=== PATIENT | male | born 1995 | race Caucasian/White ===

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

== ENCOUNTER 2017-08-06 12:16 | Emergency (ER) | payer OTHER | END 2017-08-06 14:46 | disposition home or self-care (01) | LOC: M ED 12:16 | DX: S93.401A Sprain of unspecified ligament of right ankle, initial encounter (principal); X50.9XXA Other and unspecified overexertion or strenuous movements or postures, initial encounter; Y92.410 Unspecified street and highway as the place of occurrence of the external cause | CPT/HCPCS: 73610 ==

== ENCOUNTER → 2018-03-22 | Outpatient (REF) | payer OTHER ==
[~2018-03-22] MED LIST changes: +TRAZ-160 PO; -TRAZ50TA11 PO; +ZOFR4TAB14 PO; -ZOFR4TAB3 PO
[2018-03-25 13:32] LABS: INFLUENZA A AMPLIFICATION NEGATIVE (NEGATIVE); INFLUENZA B AMPLIFICATION NEGATIVE (NEGATIVE)
== END ==
LOC: M LAB REF 09:47
PROVIDERS: ATTEND Physician Assistant Medical
DX: J11.1 Influenza due to unidentified influenza virus with other respiratory manifestations (principal)

== ENCOUNTER → 2018-03-22 | Outpatient (REF) | payer OTHER | LOC: M LAB REF 11:56 | PROVIDERS: ATTEND Physician Assistant Medical | DX: J11.1 Influenza due to unidentified influenza virus with other respiratory manifestations (principal) ==

== ENCOUNTER → 2018-09-30 | Outpatient (REF) | payer OTHER ==
[~2018-09-30] MED LIST changes: -TRAZ-160 PO; +TRAZ-252 PO
[2018-09-30 19:06] LABS: BASO % 0.7 % (0.0-1.0); EOS # 0.1 10^3/uL (0.0-0.50); EOS % 1.1 % (0.0-3.0); HEMATOCRIT 43.1 % (42.0-52.0); HEMOGLOBIN 15.1 g/dl (13.5-17.5); LYMPH % 34.8 % (24.0-44.0); MEAN CORPUSCULAR HEMOGLOBIN 32.5 pg (27.0-33.0); MEAN CORPUSCULAR VOLUME 92.7 fl (80.0-96.0); MONO # 0.6 10^3/uL (0.0-0.8); MONO % 11.2 % (0.0-5.0); NEUTROPHILS # 2.9 10^3/uL (1.8-7.7); PLATELET COUNT, AUTOMATED 193 10^3/uL (150-450); RED BLOOD COUNT 4.65 10^6/uL (4.30-6.10); WHITE BLOOD COUNT 5.6 10^3/uL (4.0-10.0)
[2018-09-30 19:19] LABS: ALBUMIN 4.5 GM/DL (3.2-5.2); ALT/SGPT 22 U/L (12-78); BILIRUBIN,TOTAL 2.8 MG/DL (0.2-1.0); BLOOD UREA NITROGEN 9 MG/DL (7-18); CALCIUM LEVEL 9.4 MG/DL (8.5-10.1); CARBON DIOXIDE LEVEL 31 MEQ/L (21-32); CHLORIDE LEVEL 106 MEQ/L (98-107); CHOLESTEROL LEVEL 148 MG/DL (<200); CHOLESTEROL RISK RATIO 2.349 (<5); CREATININE FOR GFR 0.99 MG/DL (0.70-1.30); FREE T4 1.08 NG/DL (0.76-1.46); GLOMERULAR FILTRATION RATE > 60.0 (>60); GLUCOSE, FASTING 94 MG/DL (70-100); HDL CHOLESTEROL 63 MG/DL (>40); LDL CHOLESTEROL 72 MG/DL (<100); NON-HDL-C 85 MG/DL; POTASSIUM SERUM 3.7 MEQ/L (3.5-5.1); SODIUM LEVEL 141 MEQ/L (136-145); TOTAL PROTEIN 7.9 GM/DL (6.4-8.2); TRIGLYCERIDES LEVEL 65 MG/DL (<150)
[2018-09-30 19:21] LABS: TOTAL 25(OH) VITAMIN D 27.1 NG/ML (30.0-100.0)
[2018-09-30 20:15] LABS: HEMOGLOBIN A1c 5.2 %
== END ==
LOC: M LAB REF 17:54
PROVIDERS: ATTEND Nurse Practitioner Family
DX: Z00.00 Encounter for general adult medical examination without abnormal findings (principal)

== ENCOUNTER → 2019-04-19 | Outpatient (REF) | payer OTHER | LOC: M LAB REF 14:28 → EEVIPCON 14:28 | PROVIDERS: ATTEND Physician Assistant Medical | DX: L98.9 Disorder of the skin and subcutaneous tissue, unspecified (principal) ==

== ENCOUNTER 2019-05-21 19:42 | Emergency (ER) | payer OTHER ==
[~2019-05-21] VITALS: Ht 177.8 cm; Wt 56.6 kg
[2019-05-21] MEDS ORDERED: PROZ20CA11 PO (19:45)
[2019-05-21] MEDS ORDERED: NS 1,000 ML IV ONE (20:00)
[2019-05-21] MEDS ORDERED: ONDANSETRON 4MG/2ML VIAL (J2405) IV ONE (20:00)
[2019-05-21 20:33] LABS: BASO % 0.3 % (0.0-1.0); EOS % 0.3 % (0.0-3.0); LYMPH # 0.5 10^3/uL (1.5-5.0); LYMPH % 4.8 % (24.0-44.0); MEAN CORPUSCULAR HGB CONC 34.9 g/dl (32.0-36.5); MEAN CORPUSCULAR VOLUME 91.7 fl (80.0-96.0); MONO # 0.7 10^3/uL (0.0-0.8); NEUTROPHILS # 9.9 10^3/uL (1.5-8.5); NEUTROPHILS % 88.1 % (36.0-66.0); PLATELET COUNT, AUTOMATED 177 10^3/uL (150-450); RED BLOOD COUNT 4.69 10^6/uL (4.30-6.10); WHITE BLOOD COUNT 11.3 10^3/uL (4.0-10.0)
[2019-05-21 20:37] LABS: APPEARANCE, URINE CLEAR (CLEAR); BACTERIA, URINE AUTO NEGATIVE (NEGATIVE); BILIRUBIN, URINE AUTO NEGATIVE (NEGATIVE); BLOOD, URINE BLOOD NEGATIVE (NEGATIVE); COLOR, URINE YELLOW (YELLOW); GLUCOSE, URINE (UA) AUTO NEGATIVE (NEGATIVE); KETONE, URINE AUTO 1+ mg/dL (NEGATIVE); LEUKOCYTE ESTERASE, URINE AUTO NEGATIVE (NEGATIVE); MUCUS, URINE SMALL (NEGATIVE); NITRITE, URINE AUTO NEGATIVE (NEGATIVE); PROTEIN, URINE AUTO NEGATIVE (NEGATIVE); RBC, URINE AUTO 0 /HPF (0-3); SPECIFIC GRAVITY URINE AUTO 1.025 (1.002-1.035); SQUAMOUS EPITHELIAL CELL UR AU 0 /HPF (0-6); UROBILINOGEN, URINE AUTO 0.2 mg/dL (0.0-2.0); WBC, URINE AUTO 1 /HPF (0-3)
[2019-05-21 20:59] LABS: ALBUMIN 3.9 GM/DL (3.2-5.2); ALT/SGPT 28 U/L (12-78); BILIRUBIN,DIRECT 0.3 MG/DL (0.0-0.2); BILIRUBIN,TOTAL 1.4 MG/DL (0.2-1.0); BLOOD UREA NITROGEN 10 MG/DL (7-18); CALCIUM LEVEL 8.9 MG/DL (8.5-10.1); CARBON DIOXIDE LEVEL 26 MEQ/L (21-32); CHLORIDE LEVEL 102 MEQ/L (98-107); CREATININE FOR GFR 0.89 MG/DL (0.70-1.30); GLOMERULAR FILTRATION RATE > 60.0 (>60); GLUCOSE, FASTING 147 MG/DL (70-100); POTASSIUM SERUM 3.6 MEQ/L (3.5-5.1); SODIUM LEVEL 135 MEQ/L (136-145); TOTAL PROTEIN 7.7 GM/DL (6.4-8.2)
[2019-05-21] MEDS ORDERED: ONDA4TAB6 PO (21:08)
[2019-05-21 21:17] VITALS: BP 118/70
== END 2019-05-21 21:19 | disposition home or self-care (01) ==
LOC: M ED 19:42
DX: R11.2 Nausea with vomiting, unspecified (principal); E86.0 Dehydration; F17.290 Nicotine dependence, other tobacco product, uncomplicated; Z88.8 Allergy status to other drugs, medicaments and biological substances; Z91.018 Allergy to other foods
CPT/HCPCS: 80048; 80076; 81001; 85025; 96361; 96374; 99284; J2405

== ENCOUNTER 2020-07-11 19:43 | Inpatient (IN) | payer MEDICAID, OTHER ==
[~2020-07-11] VITALS: Ht 180.3 cm; Wt 60.0 kg
[~2020-07-11 19:43] MED LIST changes: +ONDA4TAB6 PO
[2020-07-11 20:52] LABS: HEMATOCRIT 42.7 % (42.0-52.0); HEMOGLOBIN 14.6 g/dl (13.5-17.5); MEAN CORPUSCULAR HEMOGLOBIN 30.7 pg (27.0-33.0); MEAN CORPUSCULAR HGB CONC 34.2 g/dl (32.0-36.5); MEAN CORPUSCULAR VOLUME 89.7 fl (80.0-96.0); PLATELET COUNT, AUTOMATED 223 10^3/uL (150-450); RED BLOOD COUNT 4.76 10^6/uL (4.30-6.10); WHITE BLOOD COUNT 8.7 10^3/uL (4.0-10.0)
[2020-07-11 21:18] LABS: AMPHETAMINES LEVEL URINE NEGATIVE (NEGATIVE); BARBITURATES URINE NEGATIVE (NEGATIVE); BENZODIAZEPINES URINE NEGATIVE (NEGATIVE); CANNABINOIDS URINE POSITIVE (NEGATIVE); COCAINE METABOLITE URINE NEGATIVE (NEGATIVE); METHADONE URINE NEGATIVE (NEGATIVE); OPIATES URINE NEGATIVE (NEGATIVE); PHENCYCLIDINE URINE NEGATIVE (NEGATIVE)
[2020-07-11 21:30] LABS: ACETAMINOPHEN LEVEL < 2.0 UG/ML (10.0-30.0); ALT/SGPT 21 U/L (12-78); BILIRUBIN,DIRECT 0.3 MG/DL (0.0-0.2); BILIRUBIN,TOTAL 0.9 MG/DL (0.2-1.0); BLOOD UREA NITROGEN 12 MG/DL (7-18); CALCIUM LEVEL 8.6 MG/DL (8.5-10.1); CARBON DIOXIDE LEVEL 26 MEQ/L (21-32); CHLORIDE LEVEL 108 MEQ/L (98-107); CREATININE FOR GFR 0.98 MG/DL (0.70-1.30); ETHYL ALCOHOL (ETHANOL) < 0.003 % (0.000-0.010); GLOMERULAR FILTRATION RATE > 60.0 (>60); GLUCOSE, FASTING 117 MG/DL (70-100); POTASSIUM SERUM 3.8 MEQ/L (3.5-5.1); SALICYLATE LEVEL < 1.7 MG/DL (5.0-30.0); SODIUM LEVEL 141 MEQ/L (136-145); TOTAL PROTEIN 7.6 GM/DL (6.4-8.2)
[2020-07-12] MEDS ORDERED: ONDANSETRON 4 MG ORAL DISINTEGRATING TAB PO ONE (07:25)
[2020-07-12] MEDS ORDERED: FLUTISP NARES (07:46)
[2020-07-12] MEDS ORDERED: CETI-24 PO (07:46)
[2020-07-12] MEDS ORDERED: ONDA4TAB6 PO (07:46)
[2020-07-12] MEDS ORDERED: FLUoxetine 20 MG CAP PO ONE (08:35)
[2020-07-12] MEDS ORDERED: FLUoxetine 20 MG CAP PO SCH (09:00)
[2020-07-12 15:12] LABS: RSV AMPLIFICATION NEGATIVE (NEGATIVE)
[2020-07-12] MEDS ORDERED: hydrOXYzine 25 MG TAB PO PRN (19:15)
[2020-07-12] MEDS ORDERED: OLANZapine ORAL DISINTEGRATING TAB 5MG PO PRN (19:15)
[2020-07-12] MEDS ORDERED: traZODone 50 MG TAB PO PRN (19:15)
[2020-07-12] MEDS ORDERED: MAALOX 30 ML SUSP *UDC PO PRN (19:15)
[2020-07-12] MEDS ORDERED: ACETAMINOPHEN TAB 650MG DOSE (2X325MG) PO PRN (19:15)
[2020-07-12] MEDS ORDERED: MOM 30ML SUSPENSION UDC PO PRN (19:15)
[2020-07-12 23:59] VITALS: BP 140/89
[2020-07-13 06:00] VITALS: BP 132/89
[2020-07-13] MEDS ORDERED: FLUoxetine 20 MG CAP PO SCH (09:00)
--- NOTE | 2020-07-13 10:33 | MHHPEPDOC ---
General Date Of Admission: Jul 12, 2020 Legal Status: 9.39 Chief Complaint ". My overreacted. She thought I was going to do something stupid. History of Present Illness HISTORY OF THE PRESENT ILLNESS: Patient is a 25 -year-old , male, who [has one prior admission 6 years ago and has been taking Prozac prescribed by his primary care doctor. Patient states that he had problem with depression and anger management and the past few days. He forgot to take his Prozac and was becoming a more irritable and feeling anxious. He states that he had minor argument with his and went out to cool off his temper but his thought he might do something and called the police. He was found at the edge of the [place] was brought to emergency room and admitted on status. He denies any suicidal thoughts, plan or intent, and since then his understood and is asking him to come home soon. He states that he made an appointment to see a counselor on July 27, and is planning to continue his Prozac and really doesn't see any reason to stay in hospital.]. Psychiatric Review of Systems Depression (2 or more weeks): denies, other (irritability and feeling a little more anxious) Keisha (4 or more days of): denies Psychosis: denies PTSD: denies Anxiety: gen/non-specific anxiety Past Psychiatric History Previous Psychiatric Diagnosis: [Depression, anger management]. Previous Psychiatric Admissions: One admission 6 years ago Suicide Attempts: [None]. Psychiatric Follow-up: [Taking Prozac]. Psychiatric medications: [, Prozac]. Past Medical History Medical Problems Denies any Head Injury: No Seizures: No Hospitalizations: No Surgeries: No Family Medical/Psychiatric HX Medical Problems Noncontributory Psychiatric Disorders: No Addiction: No Suicide Attemps/Completions: No Addiction History denies Social History Childhood: [Uneventful]. Abuse/Trauma:[Denies]. Current Living Situation: [With his family]. Education: Ninth grade. Employment: [, Currently unemployed]. Social Support: []. Legal: [Denies any]. Marital: [, for 5 years, has 4 children]. Mental Status Examination General Appearance: appears stated age Build: average Demeanor: average Eye Contact: average Activity: average Behavior: cooperative Speech: clear, normal volume Mood: anxious Mood Mildly anxious but appropriate. Denies any seizures, depressed mood Affect: full, appropriate, congruent Thought Process: logical/linear Thought Content (Delusions): none reported Thought Content (Other): none reported Thought Content (Aggressive): none reported Perception (Hallucinations): none reported Perception (Other): none reported Cognition (Impairment of): none reported Cognition(Intelligence Est.): average Oriented: Awake, Alert, Oriented times three Insight: fair Judgment: Fair Psychosis: Denies Diagnoses Depressive disorder NOS A-FIB/CHADSVASC A-FIB History Current/History of A-Fib/PAF?: No Current PO Anticoag Therapy: No Age/Risk Factor Scoring CHADSVASC: CHADSVASC Response (Comments) Value Gender Risk Factor Male 0 Hx of CHF No 0 Hx of HTN No 0 Hx of Stroke/TIA/or VTE No 0 Hx of Diabetes No 0 Hx of Vascular Disease No 0 Total 0 Treatment Treatment ordered: NONE Assessment Doesn't appear clinically depressed and does not appear suicidal, will discharge home with a follow-up Initial Treatment Plan 1. Patient was admitted on a [9.39] status. 2. Complete history was obtained. 3. With patients permission, family will be contacted and database will be expanded. 4. Patients medication regimen will be reviewed and changed accordingly. 5. Patient will be provided with protected environment. 6. Patient will be treated with individual, group, and milieu therapies. 7. Patient will receive supportive psych-education. 8. Discharge planning will commence immediately. 9. Outpatient follow-up treatment will be strongly recommended. 10. The initial treatment plan will focus initially on: * Depression. * Risk for suicide. ESTIMATED LENGTH OF STAY: - DAYS. TIME SPENT COUNSELING AND COORDINATING INITIAL CARE: 40 minutes. Tobacco Cessation Screen If Patient is a Smoker Patient uses a cigarette. Sometimes, but doesn't want any nicotine cessation treatment N/A-No Antipsychotics Vital Signs Vital Signs Date Time Temp Pulse Resp B/P (MAP) Pulse Ox O2 Delivery O2 Flow Rate FiO2 07/13/20 06:00 99.5 97 16 132/89 (103) 100 Room Air Laboratory Data 24H Labs Laboratory Tests 2 07/12/20 14:24: Coronavirus (COVID-19)(PCR) NEGATIVE, Influenza Type A (RT-PCR) NEGATIVE, Influenza Type B (RT-PCR) NEGATIVE, Respiratory Syncytial Virus (PCR) NEGATIVE Medications Scheduled Cetirizine HCl (Cetirizine HCl) 10 Mg Tablet, 10 MG PO DAILY, (Reported) Fluoxetine HCl (Prozac) 20 Mg Capsule, 40 MG PO DAILY, (Reported) Scheduled PRN Fluticasone Propionate (Fluticasone Propionate) 16 Gm [place].susp, 2 SPRAY NARES DAILY PRN for ALLERGIES, (Reported) Ondansetron (Ondansetron Odt) 4 Mg Tab.rapdis, 4 MG PO Q6H PRN for NAUSEA OR VOMITING, (Reported) Allergies Coded Allergies: camphor (Verified Allergy, Severe, ANNGIOEDEMA/HIVES, 05/21/19) eucalyptus (Verified Allergy, Severe, ANNGIOEDEMA/HIVES, 05/21/19) menthol (Verified Allergy, Severe, ANNGIOEDEMA/HIVES, 05/21/19) petrolatum,white (Verified Allergy, Severe, ANNGIOEDEMA/HIVES, 05/21/19) tomato (Verified Allergy, Severe, ANNGIOEDEMA/HIVES, 05/21/19) turpentine oil (Verified Allergy, Severe, ANNGIOEDEMA/HIVES, 05/21/19) DESTINY KINGSLEY M.D. Jul 13, 2020 10:33
--- NOTE | 2020-07-13 10:37 | MHDSPDOC ---
[facility] Discharge Summary Discharge Summary DATE OF ADMISSION: Jul 12, 2020 at 19:11 DATE OF DISCHARGE: 07/13/2020 DISCHARGE DIAGNOSES: 1. . Depressive disorder, NOS 2. . REASON FOR ADMISSION: [Patient was brought in after his called the police with a concern that he may hurt himself. Patient reports no suicidal plan or intent and denies any lethality issues.] CONSULTANTS INVOLVED: TREATMENT AND PROGRESS ON THE UNIT : [Patient was seen for evaluation and was found to be at his baseline mental status. He denies any serious depression. Denies any suicidal plan, thoughts or intent and has outpatient follow-up arrangements and feels safe to go home]. Patient is to continue with his Prozac 40 mg daily HOSPITAL COURSE: [Remained stable and will be discharged] DISCHARGE ASSESSMENT: [Stable. No suicidal or] MENTAL STATUS EXAMINATION ON DISCHARGE: Patient is a [25]-year old male, who is [, cooperative and in good control]. Speech is good. Language skills are [good]. Thought processes including: [Relevant, coherent]. Thought content: No serious depression and no suicidal thoughts . Abstract reasoning, and computation: [Good. Well organized]. Description of abnormal or psychotic thoughts: [None]. Judgment: [, Fair]. Insight: [Fair]. Orientation to , well oriented. Recent and remote memory: [Good]. Attention span and concentration: [Good]. Language: . Fund of knowledge: [Average]. Mood: . Euthymic Affect: ., Appropriate MEDICATIONS ON DISCHARGE: - for . To continue his Prozac 40 mg daily - for . - for . PLAN/FOLLOWUP ARRANGEMENTS: [As arranged by shoe lay out planner]. The amount of time spent in the coordination of care for this patient was approximately [30] minutes. ETOH/Disorder Med Rx ETOH/DRUG DISORDER RX: N/A Vital Signs/I&Os Vital Signs Date Time Temp Pulse Resp B/P (MAP) Pulse Ox O2 Delivery O2 Flow Rate FiO2 07/13/20 06:00 99.5 97 16 132/89 (103) 100 Room Air Laboratory Data Labs 24H Laboratory Tests 2 07/12/20 14:24: Coronavirus (COVID-19)(PCR) NEGATIVE, Influenza Type A (RT-PCR) NEGATIVE, Influenza Type B (RT-PCR) NEGATIVE, Respiratory Syncytial Virus (PCR) NEGATIVE Medications Scheduled Cetirizine HCl (Cetirizine HCl) 10 Mg Tablet, 10 MG PO DAILY, (Reported) Fluoxetine HCl (Prozac) 20 Mg Capsule, 40 MG PO DAILY, (Reported) Scheduled PRN Fluticasone Propionate (Fluticasone Propionate) 16 Gm [place].susp, 2 SPRAY NARES DAILY PRN for ALLERGIES, (Reported) Ondansetron (Ondansetron Odt) 4 Mg Tab.rapdis, 4 MG PO Q6H PRN for NAUSEA OR VOMITING, (Reported) Allergies Coded Allergies: camphor (Verified Allergy, Severe, ANNGIOEDEMA/HIVES, 05/21/19) eucalyptus (Verified Allergy, Severe, ANNGIOEDEMA/HIVES, 05/21/19) menthol (Verified Allergy, Severe, ANNGIOEDEMA/HIVES, 05/21/19) petrolatum,white (Verified Allergy, Severe, ANNGIOEDEMA/HIVES, 05/21/19) tomato (Verified Allergy, Severe, ANNGIOEDEMA/HIVES, 05/21/19) turpentine oil (Verified Allergy, Severe, ANNGIOEDEMA/HIVES, 05/21/19) DESTINY KINGSLEY M.D. Jul 13, 2020 10:37
--- NOTE | 2020-07-13 11:40 | HPEPDOC ---
[facility] Medical History & Physical Date of Admission Jul 12, 2020 Date of Service: Jul 13, 2020 Attending Physician: Brenda Sosa MD History and Physical Medical history and physical HISTORY OF PRESENT ILLNESS: Patient is a 25 -year-old M with PMH of depression / anxiety / insomnia who was admitted on 07/12/2020 with the chief diagnosis of unspecified depressive disorder. He states that he missed 2 days of his medications and this was the cause of him having increased depression and anger management over the last several days. He admits to increased anxiety with anxiety, irritability, anger and thought that he might do something bad. The police were called. He was found on a [place] edge by the police that time was brought to the ER for further evaluation. At the time of admission the patient denied any suicidal thoughts, plan or intent. I evaluated him on 07/13/2020. The patient had no thoughts of homicidal id eation, suicidal ideation, auditory or visual hallucinations, denied issues sleeping, eating, she'll use of breath, chest pain, fevers, chills. According to psychiatry notes he states that he made an appointment to see a counselor on July 27, and is planning to continue his Prozac and really doesn't see any reason to stay in hospital. REVIEW OF SYSTEMS: Neg except for what is mentioned above PAST MEDICAL HISTORY: Anxiety Depression Insomnia PAST SURGICAL HISTORY: None FAMILY HISTORY: Father: psychiatry history. Alive Mother: psychiatry history. Alive SOCIAL HISTORY: Uses a vape pen, max 10 times daily. Previously smoked cigarettes. Has been using for >5 years. Denies alcohol use. Admits to marijuana. Lives with family locally. PCP local. Full Code ALLERGIES: Please see below. HOME MEDICATIONS: Please see below. PHYSICAL EXAMINATION: VS: Please see below CONSTITUTIONAL: No acute distress, resting comfortably, AAO x 3, pleasant EYES: PERRLA, EOM intact HENT, MOUTH: Normocephalic, atraumatic, moist mucous membranes NECK: SUPPLE, no JVD, no lymphadenopathy, no carotid bruit CV: Regular rate and rhythm, S1S2 normal, no murmurs/rubs/gallops RESPIRATORY: Clear to auscultation bilaterally, no rales/rhonchi/wheezes GI: BS positive in 4 quadrants, soft, nontender, nondistended, no rebound or guarding, no organomegaly : Deferred MUSCULOSKELETAL: Normal ROM. No cyanosis, clubbing, swelling, joint deformity, extremity edema INTEGUMENTARY: Many tattoos over body, Intact, no rashes, no lesions, no erythema NEUROLOGIC: Cranial Nerves II-XII are intact, no focal deficits PSYCHIATRIC: Mood and affect are normal LABORATORY DATA: Please see below IMAGING: None ASSESSMENT: 25 y/o M admitted for unspecified depressive d/o PLAN: Unspecified depressive disorder / anxiety -Patient to continue PO prozac -Plan per psychiatry team DISPOSITION: Thank you kindly for this consult. At this time will sign off. Vital Signs Vital Signs Date Time Temp Pulse Resp B/P (MAP) Pulse Ox O2 Delivery O2 Flow Rate FiO2 07/13/20 06:00 99.5 97 16 132/89 (103) 100 Room Air Laboratory Data Labs 24H Laboratory Tests 2 07/12/20 14:24: Coronavirus (COVID-19)(PCR) NEGATIVE, Influenza Type A (RT-PCR) NEGATIVE, Influenza Type B (RT-PCR) NEGATIVE, Respiratory Syncytial Virus (PCR) NEGATIVE Home Medications Scheduled Cetirizine HCl (Cetirizine HCl) 10 Mg Tablet, 10 MG PO DAILY Fluoxetine HCl (Prozac) 20 Mg Capsule, 40 MG PO DAILY Scheduled PRN Fluticasone Propionate (Fluticasone Propionate) 16 Gm [place].susp, 2 SPRAY NARES DAILY PRN for ALLERGIES Ondansetron (Ondansetron Odt) 4 Mg Tab.rapdis, 4 MG PO Q6H PRN for NAUSEA OR VOMITING Allergies Coded Allergies: camphor (Verified Allergy, Severe, ANNGIOEDEMA/HIVES, 05/21/19) eucalyptus (Verified Allergy, Severe, ANNGIOEDEMA/HIVES, 05/21/19) menthol (Verified Allergy, Severe, ANNGIOEDEMA/HIVES, 05/21/19) petrolatum,white (Verified Allergy, Severe, ANNGIOEDEMA/HIVES, 05/21/19) tomato (Verified Allergy, Severe, ANNGIOEDEMA/HIVES, 05/21/19) turpentine oil (Verified Allergy, Severe, ANNGIOEDEMA/HIVES, 05/21/19) A-FIB/CHADSVASC A-FIB History Current/History of A-Fib/PAF?: No Current PO Anticoag Therapy: No Age/Risk Factor Scoring CHADSVASC: CHADSVASC Response (Comments) Value Age Risk Factor Age < 65 years old 0 Gender Risk Factor Male 0 Hx of CHF No 0 Hx of HTN No 0 Hx of Stroke/TIA/or VTE No 0 Hx of Diabetes No 0 Hx of Vascular Disease No 0 Total 0 Treatment Treatment ordered: NONE Brenda Sosa MD Jul 13, 2020 11:40
== END 2020-07-13 12:00 | disposition home or self-care (01) | DRG 754 ==
LOC: M ED 19:43 → M ED INP 07-12 19:11 → M PSY 07-13 00:20
PROVIDERS: ADMIT Psychiatry & Neurology Psychiatry; ATTEND Psychiatry & Neurology Psychiatry
DX: F32.9 Major depressive disorder, single episode, unspecified (principal); Z91.14 Patient's other noncompliance with medication regimen; F17.210 Nicotine dependence, cigarettes, uncomplicated; Z20.822 Contact with and (suspected) exposure to COVID-19; Z79.899 Other long term (current) drug therapy; Z88.8 Allergy status to other drugs, medicaments and biological substances; Z91.018 Allergy to other foods; Z91.048 Other nonmedicinal substance allergy status; Z63.0 Problems in relationship with spouse or partner

== ENCOUNTER → 2020-07-20 | Outpatient (REF) | payer MEDICAID ==
[~2020-07-20] MED LIST changes: +CETI-24 PO; +FLUTISP NARES
[2020-07-20 16:56] LABS: BASO # 0.1 10^3/uL (0.0-0.2); EOS # 0.2 10^3/uL (0.0-0.5); EOS % 2.5 % (0.0-3.0); HEMATOCRIT 43.2 % (42.0-52.0); HEMOGLOBIN 14.5 g/dl (13.5-17.5); LYMPH # 2.4 10^3/uL (1.5-5.0); LYMPH % 38.5 % (24.0-44.0); MEAN CORPUSCULAR HEMOGLOBIN 30.7 pg (27.0-33.0); MEAN CORPUSCULAR HGB CONC 33.6 g/dl (32.0-36.5); MEAN CORPUSCULAR VOLUME 91.5 fl (80.0-96.0); MONO # 0.7 10^3/uL (0.0-0.8); MONO % 10.5 % (2.0-8.0); NEUTROPHILS # 2.9 10^3/uL (1.5-8.5); NEUTROPHILS % 46.5 % (36.0-66.0); PLATELET COUNT, AUTOMATED 254 10^3/uL (150-450); RED BLOOD COUNT 4.72 10^6/uL (4.30-6.10); WHITE BLOOD COUNT 6.3 10^3/uL (4.0-10.0)
[2020-07-20 19:25] LABS: ALBUMIN 3.7 GM/DL (3.2-5.2); ALT/SGPT 26 U/L (12-78); BILIRUBIN,TOTAL 0.5 MG/DL (0.2-1.0); BLOOD UREA NITROGEN 10 MG/DL (7-18); CALCIUM LEVEL 8.6 MG/DL (8.5-10.1); CARBON DIOXIDE LEVEL 30 MEQ/L (21-32); CHLORIDE LEVEL 105 MEQ/L (98-107); CHOLESTEROL LEVEL 132 MG/DL (<200); CHOLESTEROL RISK RATIO 2.588 (<5); CREATININE FOR GFR 0.76 MG/DL (0.70-1.30); GLOMERULAR FILTRATION RATE > 60.0 (>60); GLUCOSE, FASTING 97 MG/DL (70-100); HDL CHOLESTEROL 51 MG/DL (>40); LDL CHOLESTEROL 68 MG/DL (<100); NON-HDL-C 81 MG/DL; POTASSIUM SERUM 4.1 MEQ/L (3.5-5.1); SODIUM LEVEL 140 MEQ/L (136-145); TRIGLYCERIDES LEVEL 63 MG/DL (<150)
[2020-07-20 19:27] LABS: TOTAL 25(OH) VITAMIN D 18.6 NG/ML (30.0-100.0)
[2020-07-20 20:50] LABS: HEMOGLOBIN A1c 5.2 %
== END ==
LOC: M LAB REF 16:20
PROVIDERS: ATTEND Nurse Practitioner Family
DX: Z00.00 Encounter for general adult medical examination without abnormal findings (principal)

== ENCOUNTER 2020-11-07 11:56 | Emergency (ER) | payer OTHER ==
[~2020-11-07] VITALS: Ht 177.8 cm; Wt 65.9 kg
--- NOTE | 2020-11-07 12:55 | REP ---
INDICATION: deformity. COMPARISON: Left forearm views December 09, 2016. TECHNIQUE: Four views of the left wrist. FINDINGS: Four views of the left wrist demonstrate normal joint spaces. No fracture or subluxation is seen. IMPRESSION: Negative radiographs of the left wrist. <Electronically signed by Ezra Lockett > 11/07/20 [id number]
[2020-11-07 16:04] VITALS: BP 126/83
== END 2020-11-07 16:06 | disposition home or self-care (01) ==
LOC: M ED 11:56 → EDUNIT# 11:56 → M ED 16:06
DX: M25.532 Pain in left wrist (principal); R22.32 Localized swelling, mass and lump, left upper limb; J45.909 Unspecified asthma, uncomplicated; Z79.899 Other long term (current) drug therapy; Z88.8 Allergy status to other drugs, medicaments and biological substances; Z91.018 Allergy to other foods; Z91.048 Other nonmedicinal substance allergy status; F17.210 Nicotine dependence, cigarettes, uncomplicated

== ENCOUNTER → 2022-06-25 | Outpatient (CLI) | payer MEDICAID ==
[~2022-06-25] MED LIST changes: +FLUT50SP17 NARES; -FLUTISP NARES
== END ==
LOC: M OUTALCOH 08:26
PROVIDERS: ATTEND Psychiatry & Neurology Psychiatry
DX: Z13.39 Encounter for screening examination for other mental health and behavioral disorders (principal)

== ENCOUNTER → 2022-06-25 | Outpatient (CLI) | payer MEDICAID | LOC: M WUC 13:12 | PROVIDERS: ATTEND Physician Assistant | DX: S39.012A Strain of muscle, fascia and tendon of lower back, initial encounter (principal); X58.XXXA Exposure to other specified factors, initial encounter; Y92.9 Unspecified place or not applicable; Y93.9 Activity, unspecified; Y99.9 Unspecified external cause status ==

== ENCOUNTER → 2022-07-11 | Outpatient (RCR) | payer MEDICAID | LOC: M OUTALCOH 07-06 14:45 | PROVIDERS: ATTEND Psychiatry & Neurology Psychiatry | DX: F16.20 Hallucinogen dependence, uncomplicated (principal); F14.20 Cocaine dependence, uncomplicated; F10.10 Alcohol abuse, uncomplicated; Z72.0 Tobacco use ==

== ENCOUNTER 2022-08-08 16:00 | Outpatient (RCR) | payer MEDICAID | END 2022-08-10 | LOC: M OUTALCOH 16:00 | PROVIDERS: ATTEND Psychiatry & Neurology Psychiatry | DX: F16.20 Hallucinogen dependence, uncomplicated (principal); F14.20 Cocaine dependence, uncomplicated; F10.10 Alcohol abuse, uncomplicated; Z72.0 Tobacco use ==

== ENCOUNTER 2023-03-15 10:35 | Emergency (ER) | payer MEDICAID, OTHER, SELFPAY ==
[~2023-03-15] VITALS: Ht 180.3 cm; Wt 61.3 kg
[~2023-03-15 10:35] MED LIST changes: -FLUT50SP17 NARES; +FLUTISP NARES
[2023-03-15] MEDS ORDERED: IBUP-1022 PO (13:26)
[2023-03-15 13:38] VITALS: BP 105/74; TEMP 97.4; O2SAT 97
== END 2023-03-15 13:40 | disposition home or self-care (01) ==
LOC: M ED 10:35
DX: S30.0XXA Contusion of lower back and pelvis, initial encounter (principal); W22.8XXA Striking against or struck by other objects, initial encounter; Y92.9 Unspecified place or not applicable; Y93.9 Activity, unspecified; Y99.9 Unspecified external cause status

== ENCOUNTER → 2025-01-11 | Outpatient (CLI) | payer OTHER ==
[~2025-01-11] MED LIST changes: +IBUP600T42 PO; +ONDA-282 PO; -ONDA4TAB6 PO; -PROZ20CA11 PO; +PROZ20CA25 PO
== END ==
LOC: M RAD 16:24
PROVIDERS: ATTEND Physician Assistant Medical
DX: M25.562 Pain in left knee (principal)